=== PATIENT | female | born 1980 | race Caucasian/White ===

== ENCOUNTER → 2017-01-20 | Outpatient (CLI) | payer OTHER ==
--- NOTE | 2017-01-20 16:00 | RAD ---
Obstetrical ultrasound, 01/20/2017: History: Check size and dates No previous study is available at this time for comparison purposes. There is a single intrauterine fetus in a breech orientation. The biparietal diameter measures 9.1 cm compatible with a gestational age of 37 weeks. This corresponds well with the other measurements and yields a sonographic EDC of 02/10/2017. The weight is estimated at 6 pounds and 7 ounces +/- 15 ounces. Normal activity and heart motion were seen. The heart rate is 162 bpm. The renal pelves are mildly prominent measuring 5 mm in AP dimension on the right and 8 mm on the left. Fluid is identified in the bladder and stomach. No other specific abnormality is detected. The placenta lies anteriorly extending laterally on the right. There is a normal amount of amniotic fluid with the amniotic fluid index estimated at 13.8. The cervix was not adequately delineated on these scans. IMPRESSION: 1. Single viable intrauterine fetus of 37 weeks gestational age as described above. 2. Mild prominence of the renal collecting systems. This degree of dilatation can be normal, however, post ultrasound the kidneys is suggested to exclude an obstructive process.
== END | disposition home or self-care (01) ==
LOC: US 12:07
PROVIDERS: ATTEND Midwife, Lay
DX: P03.0 Newborn affected by breech delivery and extraction (principal); Z3A.37 37 weeks gestation of pregnancy
CPT/HCPCS: 76805